=== PATIENT | male | born 1990 | race African-American/Black ===

== ENCOUNTER 2019-05-25 05:42 | Emergency (ER) | payer OTHER ==
[~2019-05-25] VITALS: Ht 180.3 cm; Wt 81.6 kg
[2019-05-25] MEDS ORDERED: TETANUS-DIPTH-ACEL PERTUSSIS 0.5ML SYRG IM ONE (07:45)
[2019-05-25 08:12] LABS: Basophils # (auto) 0 uL; Basophils % (auto) 0.4 % (0.0-2.0); Eosinophils # (auto) 0.1 uL; Eosinophils % (auto) 1.8 % (0.0-7.0); Hematocrit 47.8 % (41.0-53.0); Hemoglobin 16.2 g/dL (13.5-17.5); Lymphocytes # (auto) 1.7 uL; Lymphocytes % (auto) 37.7 % (10.0-50.0); Mean Corpuscular Hemoglobin 28.6 pg (28.0-32.0); Mean Corpuscular Hgb Conc. 33.9 g/dL (32.0-36.0); Mean Corpuscular Volume 84.4 fL (80.0-100.0); Monocytes # (auto) 0.5 uL; Monocytes % (auto) 10.6 % (0.0-12.0); Neutrophils # (auto) 2.3 uL; Neutrophils % (auto) 49.5 % (37.0-80.0); Nucleated Red Blood Cells % 0.1 %; Platelet Count (auto) 215 10^3/uL (140-450); Red Blood Cells 5.67 10^6/uL (4.5-5.90); Red Cell Distribution Width 13.9 % (11.8-14.3); White Blood Cell 4.6 10^3/uL (4.4-10.8)
[2019-05-25 08:40] LABS: Albumin 4.6 g/dL (3.4-5.0); BUN/Creatinine Ratio 10.5; Calcium 9.7 mg/dL (8.5-10.1); Magnesium 2.3 mg/dL (1.6-2.6); Potassium 4.6 mmol/L (3.5-5.1)
[2019-05-25 08:42] LABS: Bilirubin, Total 2.1 mg/dL (0.2-1.0); Total Protein 8.2 g/dL (6.4-8.2)
[2019-05-25 12:02] VITALS: BP 125/96
== END 2019-05-25 12:10 | disposition home or self-care (01) ==
LOC: ER 05:42 → EEVIPCON 05:42 → ER 12:10
DX: T18.9XXA Foreign body of alimentary tract, part unspecified, initial encounter (principal); F32.9 Major depressive disorder, single episode, unspecified; X58.XXXA Exposure to other specified factors, initial encounter; Y93.89 Activity, other specified; Y92.89 Other specified places as the place of occurrence of the external cause; Y99.8 Other external cause status
CPT/HCPCS: 36415; 70360; 71047; 74018; 80053; 83690; 83735; 85025; 90471; 90715

== ENCOUNTER 2019-12-23 01:52 | Inpatient (IN) | payer OTHER ==
[~2019-12-23] VITALS: Ht 177.8 cm; Wt 86.4 kg
[2019-12-23] MEDS ORDERED: LIDOCAINE 1% HCL (LOCAL ANESTH.) INJ 20ML MDV ONE ×4 (03:07→13:31)
[2019-12-23] MEDS ORDERED: LIDOCAINE 1% HCL (LOCAL ANESTH.) INJ 20ML MDV ID ONE ×2 (06:00)
[2019-12-23] MEDS ORDERED: BACITRACIN TOP OINT 1 UD PKG TOP ONE (06:15)
[2019-12-23] MEDS ORDERED: MORPHINE SULFATE 4 MG/ML SYR/VIAL IV ONE (06:45)
[2019-12-23] MEDS ORDERED: ONDANSETRON HCL 4 MG/2 ML VIAL IV ONE (06:45)
[2019-12-23] MEDS ORDERED: NITROGLYCERIN 0.4 MG SL TAB SL PRN (07:30)
[2019-12-23] MEDS ORDERED: D5W/SOD CHL 0.45% 1,000 ML IV SCH (07:30)
[2019-12-23] MEDS ORDERED: MORPHINE SULF INJ 2 MG/ML SYRINGE 1ML IV PRN ×2 (07:30→14:45)
[2019-12-23] MEDS ORDERED: ONDANSETRON HCL 4 MG/2 ML VIAL IV PRN ×4 (07:30→14:45)
[2019-12-23] MEDS ORDERED: HYDROmorphone HCL 2 MG/ML VL IV PRN ×3 (07:30→13:00)
[2019-12-23] MEDS ORDERED: hydrALAZINE HCL 20 MG/ML VL IV PRN (08:15)
--- NOTE | 2019-12-23 09:35 | NUR ---
[facility] admit from ER ANGELA FOX admitted to [facility] after SBAR received. Patient oriented to primary RN, unit, room, bed, and unit policies. Patient weighed by bedscale and encouraged to call if they need something. All questions and concerns addressed, patient verbalized understanding. Guards at bedside for safety.
[2019-12-23] MEDS ORDERED: PANTOPRAZOLE 40 MG/10 ML VIAL INJ IV SCH (10:00)
--- NOTE | 2019-12-23 10:00 | NUR ---
Phone call received from Dr. Malagon. Orders received and entered in EMAR, patient to be kept NPO for surgery.
[2019-12-23 10:50] LABS: Basophils # (auto) 0 10 ^3/uL (0-0.2); Basophils % (auto) 0.6 % (0.0-2.0); Eosinophils # (auto) 0.1 10 ^3/uL (0-0.8); Eosinophils % (auto) 1.1 % (0.0-7.0); Hematocrit 40.1 % (41.0-53.0); Hemoglobin 13.2 g/dL (13.5-17.5); Lymphocytes # (auto) 2.1 10 ^3/uL (0.4-5.4); Lymphocytes % (auto) 44.7 % (10.0-50.0); Mean Corpuscular Hemoglobin 28.7 pg (28.0-32.0); Mean Corpuscular Hgb Conc. 32.8 g/dL (32.0-36.0); Mean Corpuscular Volume 87.5 fL (80.0-100.0); Monocytes # (auto) 0.5 10 ^3/uL (0-1.3); Monocytes % (auto) 11.1 % (0.0-12.0); Neutrophils % (auto) 42.5 % (37.0-80.0); Nucleated Red Blood Cells % 0.3 %; Platelet Count (auto) 166 10^3/uL (140-450); Red Blood Cells 4.59 10^6/uL (4.5-5.90); Red Cell Distribution Width 14.5 % (11.8-14.3); White Blood Cell 4.8 10^3/uL (4.4-10.8)
[2019-12-23] MEDS ORDERED: MULT-1018 PO (11:03)
[2019-12-23] MEDS ORDERED: TIOTCAP IN (11:03)
[2019-12-23] MEDS ORDERED: [UNRECOGNIZED DRUG - CODE] PO (11:03)
[2019-12-23] MEDS ORDERED: ALBUAER3 IN (11:03)
[2019-12-23] MEDS ORDERED: TRAZ50TA2 PO (11:03)
[2019-12-23] MEDS ORDERED: MONT10TA34 PO (11:03)
[2019-12-23] MEDS ORDERED: BUDE1AER5 IN (11:05)
[2019-12-23] MEDS ORDERED: AMLO5TAB15 PO (11:06)
[2019-12-23 11:07] LABS: INR 1.12 (0.9-1.15); Partial Thromboplastin Time 28.5 sec (23.0-31.2)
[2019-12-23 11:08] LABS: Potassium 3.9 mmol/L (3.5-5.1)
--- NOTE | 2019-12-23 11:10 | NUR ---
Off Unit Patient taken to pre-op for procedure.
[2019-12-23] MEDS ORDERED: MIDAZOLAM HCL 1MG/1ML-2 ML VIAL ONE (12:24)
[2019-12-23] MEDS ORDERED: fentaNYL CITRATE 100 MCG/2 ML VL ONE (12:24)
[2019-12-23] MEDS ORDERED: ONDANSETRON HCL 4 MG/2 ML VIAL ONE (12:24)
[2019-12-23] MEDS ORDERED: NEOSTIGMINE 1 MG/ML INJ (10mg/10ML VIAL) ONE (12:24)
[2019-12-23] MEDS ORDERED: ETOMIDATE (2MG/ML) 20ML VIAL IV ONE (12:24)
[2019-12-23] MEDS ORDERED: GLYCOPYRROLATE 0.2 MG/ML 1ML VIAL ONE (12:24)
[2019-12-23] MEDS ORDERED: HYDROmorphone HCL 2 MG/ML VL ONE (12:24)
[2019-12-23] MEDS ORDERED: KETAMINE HCL 10 ML ONE (12:24)
[2019-12-23] MEDS ORDERED: SODIUM CHLORIDE LOCK 30 ML ONE (12:24)
[2019-12-23] MEDS ORDERED: fentaNYL CITRATE 100 MCG/2 ML VL IV PRN (12:30)
[2019-12-23] MEDS ORDERED: MORPHINE SULFATE 4 MG/ML SYR/VIAL IV PRN ×2 (12:30→13:00)
[2019-12-23] MEDS ORDERED: BUPIVACAINE 0.25% INJ 50ML VIAL ONE (12:50)
[2019-12-23 13:00] VITALS: BP 126/71
[2019-12-23] MEDS ORDERED: HYDROmorphone HCL 2 MG/ML VL IV ONE (13:13)
[2019-12-23] MEDS ORDERED: cefOXitin 2GM/100ML 100 ML IV ONE (13:19)
[2019-12-23] MEDS ORDERED: KETOROLAC TROMETH 30 MG/ML 1ML VIAL IV ONE (14:45)
[2019-12-23] MEDS ORDERED: OXYCODONE W/ ACETAMINOPHEN 5/325MG TABLET PO PRN (14:45)
--- NOTE | 2019-12-23 15:45 | NUR ---
On Unit Patient brought back to unit after having laparotomy done. Patient is awake but very drowsy, breathing on room air. Bed alarm on for safety, call light placed within reach and patient encouraged to call for assistance. Patient kept asking for phone to call his family. Explained that it is not possible. Guards at bedside.
[2019-12-23] MEDS: D5W/SOD CHL 0.45%/KCL 20MEQ 1,000 ML IV SCH (17:20)
[2019-12-23 17:22] VITALS: BP 141/87
[2019-12-23] MEDS: KETOROLAC TROMETH 30 MG/ML 1ML VIAL IV SCH (18:00)
--- NOTE | 2019-12-23 19:30 | NUR ---
Opening Shift Note Assumed care of patient, awake and alert. A&Ox4. No S/S of distress/SOB or pain. Reinforced dressing. IS at bedside. Safety measures maintained by keeping the bed locked in lowest position, 2 side rails up, personal items and call light within reach. Instructed on POC and to call for assist PRN, will continue to monitor for changes Q1hr and PRN.
[2019-12-23] MEDS: PANTOPRAZOLE 40 MG TAB PO SCH (21:52)
[2019-12-23] MEDS: OXYCODONE W/ ACETAMINOPHEN 5/325MG TABLET PO PRN (21:53)
[2019-12-23 22:00] VITALS: BP 141/90
[2019-12-24] MEDS: KETOROLAC TROMETH 30 MG/ML 1ML VIAL IV SCH ×4 (00:24→17:37)
[2019-12-24] MEDS: OXYCODONE W/ ACETAMINOPHEN 5/325MG TABLET PO PRN ×3 (02:32→15:24)
[2019-12-24] MEDS: D5W/SOD CHL 0.45%/KCL 20MEQ 1,000 ML IV SCH ×2 (04:33→17:44)
[2019-12-24 05:00] VITALS: BP 144/75
[2019-12-24 09:00] VITALS: BP 135/74
[2019-12-24] MEDS: PANTOPRAZOLE 40 MG TAB PO SCH ×2 (09:23→22:08)
[2019-12-24] MEDS: ENOXAPARIN SOD 40 MG/0.4 ML SYRINGE SC SCH (09:32)
--- NOTE | 2019-12-24 12:54 | NUR ---
RECEIVED CALL FROM DOCTOR ELAINE CHACKO RADIOLOGIST. PER RADIOLOGIST PATIENT ABD XRAY IS SHOWING 2 FOREIGN BODY PRESENT ( SEE REPORT). MD BANG PAGED AWAITING CALL BACK.
[2019-12-24 13:17] VITALS: BP 142/87
--- NOTE | 2019-12-24 15:48 | NUR ---
SPOKE WITH DOCTOR ALFONSO INFORMED THAT ELAINE CHACKO RADIOLOGIST STATED THAT PATIENT HAS 2 FOREIGN BODIES IN RIGHT LOWER QUADRANT. NO NEW ORDERS RECEIVED. INFORMED THAT LOVENOX WAS HELD, AND 1200 TORADOL WAS HELD INFORMED THAT PATIENT HAD SOME DRAINAGE ON THE INCISION DRESSING. PER MD OKAY TO STILL GIVE LOVENOX AND TORADOL.
[2019-12-24 17:03] VITALS: BP 134/77
[2019-12-24] MEDS ORDERED: HYDROmorphone HCL 2 MG/ML VL IV PRN (17:30)
[2019-12-24] MEDS: HYDROmorphone HCL 2 MG TAB PO PRN ×2 (19:18→23:29)
--- NOTE | 2019-12-24 19:30 | NUR ---
Opening Shift Note Assumed care of patient, awake and alert. A&Ox4. No S/S of distress/SOB or pain. Some discharged noted on abdominal dressing. Dressing reinforced. IS at bedside. Safety measures maintained by keeping the bed locked in lowest position, 2 side rails up, personal items and call light within reach. Instructed on POC and to call for assist PRN, will continue to monitor for changes Q1hr and PRN.
[2019-12-24 21:50] VITALS: BP 139/72
[2019-12-24] MEDS: DOCUSATE SOD 100 MG CAP PO SCH (22:08)
[2019-12-25 05:36] VITALS: BP 149/70
[2019-12-25] MEDS: DOCUSATE SOD 100 MG CAP PO SCH ×3 (06:06→21:49)
[2019-12-25] MEDS: HYDROmorphone HCL 2 MG TAB PO PRN ×2 (06:07→12:38)
[2019-12-25] MEDS: D5W/SOD CHL 0.45%/KCL 20MEQ 1,000 ML IV SCH ×2 (06:47→20:41)
[2019-12-25 09:00] VITALS: BP 129/88
[2019-12-25] MEDS: ENOXAPARIN SOD 40 MG/0.4 ML SYRINGE SC SCH (09:47)
[2019-12-25] MEDS: PANTOPRAZOLE 40 MG TAB PO SCH ×2 (09:48→21:49)
[2019-12-25 12:00] VITALS: BP 135/83
--- NOTE | 2019-12-25 13:23 | NUR ---
Doctor Malagon at bedside discussing POC with patient, patient verbalized understanding and agrees with POC. Addendum: 12/25/19 at 1327 by COREY GEE RN RN wrong time time at 1115
--- NOTE | 2019-12-25 14:59 | NUR ---
Nutrition Assessment Notes Please refer to link for full assessment notes. Est Energy needs: [id number] kcals (25-30 kcal/kgBW) Est Protein needs: 69-87 gms/day (0.8-1.0 gm/kgBW) Will continue to monitor and reassess prn. Addendum: 12/25/19 at [address] Amended: Links added. Addendum: 12/25/19 at [address] Please note Assessment correction: Pt is not COVID+ as noted. Pt was sleeping with guards at bedside when rounded.
[2019-12-25] MEDS ORDERED: OXYCODONE W/ ACETAMINOPHEN 5/325MG TABLET PO PRN (16:45)
[2019-12-25] MEDS: OXYCODONE W/ ACETAMINOPHEN 5/325MG TABLET PO PRN ×2 (16:57→21:49)
[2019-12-25 16:59] VITALS: BP 136/79
--- NOTE | 2019-12-25 19:30 | NUR ---
Opening Shift Note Assumed care of patient, awake and alert. Patient laying in bed. A&Ox4. No S/S of distress/SOB or pain. Safety measures maintained by keeping the bed locked in lowest position, personal items and call light within reach. Guards present. Instructed on POC and to call for assist PRN, will continue to monitor for changes Q1hr and PRN.
[2019-12-25 21:00] VITALS: BP 153/92
[2019-12-26] MEDS: OXYCODONE W/ ACETAMINOPHEN 5/325MG TABLET PO PRN ×6 (01:58→22:37)
[2019-12-26 05:00] VITALS: BP 140/83
[2019-12-26] MEDS: DOCUSATE SOD 100 MG CAP PO SCH ×3 (06:11→22:36)
[2019-12-26 09:00] VITALS: BP 140/96
[2019-12-26] MEDS: D5W/SOD CHL 0.45%/KCL 20MEQ 1,000 ML IV SCH ×2 (09:25→22:36)
[2019-12-26] MEDS: ENOXAPARIN SOD 40 MG/0.4 ML SYRINGE SC SCH (10:25)
[2019-12-26] MEDS: PANTOPRAZOLE 40 MG TAB PO SCH ×2 (10:26→22:36)
--- NOTE | 2019-12-26 15:30 | NUR ---
Smith catheter insertion Patient assessed and determined to be in need of smith catheter. Order obtained from . Patient educated on catheter and reason for insertion. All questions answered. Smith catheter 16 guage Spanish inserted with clean sterile technique. Patient tolerated well. Addendum: 12/26/19 at 1849 by COREY GEE RN RN WRONG PATIENT
[2019-12-26 17:00] VITALS: BP 144/84
--- NOTE | 2019-12-26 18:00 | NUR ---
IV insertion IV access obtained, via clean sterile technique by inserting 22 gauge catheter at left hand after 1 attempt(s). IV secured properly. No trauma to site. Patient tolerated well. NOTE:
[2019-12-26 21:33] VITALS: BP 141/84
[2019-12-27] MEDS: OXYCODONE W/ ACETAMINOPHEN 5/325MG TABLET PO PRN ×3 (02:26→11:32)
[2019-12-27 04:43] VITALS: BP 135/76
[2019-12-27] MEDS: DOCUSATE SOD 100 MG CAP PO SCH ×2 (06:23→14:00)
[2019-12-27 08:00] VITALS: BP 138/90
[2019-12-27 09:00] VITALS: BP 138/90
[2019-12-27] MEDS: PANTOPRAZOLE 40 MG TAB PO SCH (09:47)
[2019-12-27] MEDS: ENOXAPARIN SOD 40 MG/0.4 ML SYRINGE SC SCH ×2 (09:47→09:52)
[2019-12-27] MEDS: D5W/SOD CHL 0.45%/KCL 20MEQ 1,000 ML IV SCH (12:05)
[2019-12-27 13:02] VITALS: BP 134/81
--- NOTE | 2019-12-27 13:30 | NUR ---
Dr Lyle on unit
[2019-12-27 13:57] VITALS: BP 138/90
--- NOTE | 2019-12-27 14:40 | NUR ---
Discharge instructions given as ordered to patient and packet given to guards. Patient will be followed by senior living MD. All questions and concerns addressed. Patient verbalized understanding. Medication reconciliation form completed and copy given to patient. IV removed with catheter intact and pressure dressing applied. Patient and guards are still on unit until senior living transport is able to come for patient.
--- NOTE | 2019-12-27 19:45 | NUR ---
Discharge Transfers 1944 Patient is being transferred back to [facility] by CO's. Patient is to follow up with doctor at the receiving facility.
== END 2019-12-27 19:45 | DRG 354 ==
LOC: EDBD 01:52 → EEVIPCON 01:54 → ER 01:54 → OVERFLOW 01:55 → WEST WING 09:37
PROVIDERS: ADMIT Specialist; ATTEND Internal Medicine
PROC: 3E0T3BZ Introduction of Anesthetic Agent into Peripheral Nerves and Plexi, Percutaneous Approach (ICD-10-PCS; 2019-12-23)
PROC: 0WQF0ZZ Repair Abdominal Wall, Open Approach (ICD-10-PCS; principal; 2019-12-23 13:23)
DX: T18.3XXA Foreign body in small intestine, initial encounter (principal); K42.0 Umbilical hernia with obstruction, without gangrene; S51.812A Laceration without foreign body of left forearm, initial encounter; F32.9 Major depressive disorder, single episode, unspecified; F41.9 Anxiety disorder, unspecified; X78.8XXA Intentional self-harm by other sharp object, initial encounter; Y93.89 Activity, other specified; Y92.89 Other specified places as the place of occurrence of the external cause; Y99.0 Civilian activity done for income or pay; Z20.828 Contact with and (suspected) exposure to other viral communicable diseases
CPT/HCPCS: 36415; 71046; 74018; 80048; 85025; 85610; 85730; 96361; 96374; 96375; 96376; C9113; G0378; J0694; J1885; J2001; J2250; J2405; J3490